=== PATIENT | female | born 1935 | race African-American/Black ===

== ENCOUNTER 2024-05-03 12:53 | Emergency (ER) | payer OTHER ==
[~2024-05-03] VITALS: Ht 157.5 cm; Wt 50.0 kg
[2024-05-03] MEDS: ONDANSETRON HCL 4MG/2ML INJ IV STA (13:57)
[2024-05-03 14:01] LABS: BASOPHILS % 0.5 % (0.0-2.0); DIFFERENTIAL COMMENT 0; EOSINOPHILS % 0.4 % (0.0-5.0); HEMATOCRIT. 44.5 % (36.0-48.0); HEMOGLOBIN. 14.5 g/dL (12.0-16.0); LYMPHOCYTES % 16.2 % (20.0-50.0); MEAN CORPUSCULAR HEMOGLOBIN 24.5 pg (28.0-32.0); MEAN CORPUSCULAR HGB CONC 32.6 g/dL (31.0-37.0); MEAN PLATELET VOLUME 8.5 fl (7.4-10.4); MONOCYTES % 6.8 % (2.0-8.0); NEUTROPHILS % 76.1 % (40.0-76.0); PLATELET 189 x1000/uL (130-400); RED BLOOD CELL COUNT 5.93 mill/uL (4.2-5.4); RED CELL DISTRIBUTION WIDTH 16.8 % (11.6-14.6); WHITE BLOOD COUNT 8.9 x1000/uL (4.5-11.0)
[2024-05-03] MEDS: SODIUM CHLORIDE 0.9% 1,000 ML IV ONE (14:15)
[2024-05-03 14:16] LABS: LACTIC ACID 3.3 mmol/L (0.4-2.0)
[2024-05-03 14:45] VITALS: O2SAT 98
[2024-05-03] MEDS: ACETAMINOPHEN 325MG TABLET PO ONE (15:09)
[2024-05-03 15:52] LABS: CHLORIDE 106 mEq/L (98-107); POTASSIUM 3.7 mEq/L (3.5-5.1); SODIUM 142 mEq/L (136-145)
[2024-05-03 15:53] LABS: CARBON DIOXIDE 31 mEq/L (21-32)
[2024-05-03 15:54] LABS: CALCIUM 9.2 mg/dL (8.7-10.4)
[2024-05-03 15:57] LABS: INR 0.9; PROTHROMBIN TIME 10.3 sec (9.6-11.0)
[2024-05-03 15:58] LABS: CREATININE 0.8 mg/dL (0.6-1.0); GLUCOSE 99 mg/dL (70-105)
[2024-05-03 15:59] LABS: TROPONIN I HIGH SENSITIVITY 4 ng/L (3.0-34); UREA NITROGEN BLOOD 11 mg/dL (9-23)
[2024-05-03 16:00] LABS: ALANINE AMINOTRANSFERASE 13 IU/L (10-49); ALBUMIN 3.6 g/dL (3.2-4.8); ASPARTATE AMINOTRANSFERASE 22 IU/L (<34)
[2024-05-03 16:01] LABS: BILIRUBIN TOTAL 0.3 mg/dL (0.1-1.0); PROTEIN TOTAL 6.7 g/dL (6.0-8.3)
[2024-05-03 16:03] LABS: BILIRUBIN DIRECT < 0.1 mg/dL (<=3.0)
[2024-05-03] MEDS ORDERED: ONDA-239 PO (18:09)
[2024-05-03 18:18] VITALS: BP 144/70; PULSE 87; RESP 16; TEMP 36.78072; O2SAT 98
== END 2024-05-03 18:42 | disposition home or self-care (01) ==
LOC: ER 12:53
DX: R19.7 Diarrhea, unspecified (principal); E78.00 Pure hypercholesterolemia, unspecified; I10 Essential (primary) hypertension; R51.9 Headache, unspecified
CPT/HCPCS: 99285; 70450; 96374; 93971; 71045; 96361; 80076; 80048; 83880; 83605; 85025; 85610; 87040; 84484; 36415; 84145; 74176; 93005; J2405; J7030